=== PATIENT | male | born 1935 | race Caucasian/White ===

== ENCOUNTER 2020-02-02 17:16 | Inpatient (IN) | payer MEDICARE, MEDICAID ==
[~2020-02-02] VITALS: Ht 165.1 cm; Wt 77.4 kg
[2020-02-02] MEDS ORDERED: SODIUM CHLORIDE 0.9% 500 ML IV ONE (17:36)
[2020-02-02] MEDS ORDERED: ONDANSETRON HCL 4MG/2ML INJ IV ONE (17:45)
[2020-02-02 18:00] LABS: BASOPHILS % 0.6 % (0.0-2.0); EOSINOPHILS % 0.4 % (0.0-5.0); HEMATOCRIT. 34.2 % (42.0-52.0); HEMOGLOBIN. 11.3 g/dL (14.0-18.0); LYMPHOCYTES % 16.7 % (20.0-50.0); MEAN CORPUSCULAR HEMOGLOBIN 28.6 pg (28.0-32.0); MEAN CORPUSCULAR VOLUME 86.6 fL (80.0-94.0); MEAN PLATELET VOLUME 9.7 fl (7.4-10.4); MONOCYTES % 8.3 % (2.0-8.0); PLATELET 102 x1000/uL (130-400); RED BLOOD CELL COUNT 3.95 mill/uL (4.7-6.1); RED CELL DISTRIBUTION WIDTH 18.1 % (11.6-14.6)
[2020-02-02 18:07] LABS: CHLORIDE 101 mEq/L (98-107)
[2020-02-02 18:10] LABS: PROTHROMBIN TIME 10.3 sec (9.6-11.0)
[2020-02-02] MEDS ORDERED: DOPAMINE 400MG/250ML PREMIX 250 ML IV ONE (18:15)
[2020-02-02 18:16] LABS: CREATINE KINASE 40 IU/L (39-308)
[2020-02-02 18:19] LABS: CREATINE KINASE MB FRACTION < 1.0 ng/mL (0.5-3.6)
[2020-02-02] MEDS ORDERED: CALCIUM CHLORIDE 1GM/10ML SYR IV ONE (18:30)
[2020-02-02] MEDS ORDERED: DEXTROSE 50% WATER 50ML SYRINGE IV ONE (18:30)
[2020-02-02] MEDS ORDERED: SODIUM BICARBONATE 8.4% 1 MEQ/ML 50ML SYR IV ONE (18:30)
[2020-02-02] MEDS ORDERED: INSULIN REGULAR (HUMULIN R) 300UNITS/3ML IV ONE (18:30)
[2020-02-02] MEDS ORDERED: PROPOFOL 10MG/ML 100ML 100 ML IV ONE (18:45)
[2020-02-02 19:17] LABS: BG BASE EXCESS -3.8 mmol/L (-2.0-2.0); BG CARBOXYHEMOGLOBIN 0.3 % (0.5-1.5); BG DEOXYHEMOGLOBIN 0.7 % (0.0-5.0); BG FRACTION INSPIRED OXYGEN 100; BG HCO3 ACT 21.2 mmol/L (22.0-26.0); BG METHEMOGLOBIN 0.3 % (0.0-1.5); BG OXYGEN SATURATION 99.3 % (92.0-98.5); BG OXYHEMOGLOBIN 98.7 % (94.0-97.0); BG PCO2 38.3 mmHg (35.0-45.0); BG PH 7.362 (7.350-7.450); BG PO2 256.1 mmHg (75.0-100.0); BG SAMPLE SITE LEFT RADIAL; BG TIDAL VOLUME(mL) 500 mL; BG VENT MODE VENT - A/C; BG VENT RATE 16 set
[2020-02-02] MEDS ORDERED: PROPOFOL 10MG/ML 100ML 100 ML IV SCH (22:00)
[2020-02-03] VITALS (55 sets, daily range): BP systolic 113–189; BP diastolic 51–119
[2020-02-03] MEDS ORDERED: PROPOFOL 10MG/ML 100ML 100 ML IV PRN (00:45)
[2020-02-03] MEDS: DOPAMINE 400MG/250ML PREMIX 250 ML IV PRN ×5 (01:34→18:54)
[2020-02-03 08:59] LABS: BG BASE EXCESS -7.8 mmol/L (-2.0-2.0); BG DEOXYHEMOGLOBIN 10.2 % (0.0-5.0); BG FRACTION INSPIRED OXYGEN 50; BG HCO3 ACT 17.3 mmol/L (22.0-26.0); BG METHEMOGLOBIN 0.1 % (0.0-1.5); BG OXYGEN SATURATION 89.8 % (92.0-98.5); BG OXYHEMOGLOBIN 89.7 % (94.0-97.0); BG PH 7.325 (7.350-7.450); BG PO2 64.9 mmHg (75.0-100.0); BG SAMPLE SITE RIGHT RADIAL; BG TIDAL VOLUME(mL) 500 mL; BG TOTAL HEMOGLOBIN 12.5 g/dL (12.0-18.0); BG VENT MODE VENT - A/C; BG VENT RATE 16 set
[2020-02-03 10:20] LABS: CHLORIDE 93 mEq/L (98-107)
[2020-02-03 10:21] LABS: HEMATOCRIT. 35.8 % (42.0-52.0); HEMOGLOBIN. 11.9 g/dL (14.0-18.0); MEAN CORPUSCULAR HEMOGLOBIN 28.8 pg (28.0-32.0); MEAN CORPUSCULAR VOLUME 86.6 fL (80.0-94.0); RED BLOOD CELL COUNT 4.14 mill/uL (4.7-6.1); RED CELL DISTRIBUTION WIDTH 18.1 % (11.6-14.6)
[2020-02-03] MEDS: PROPOFOL 10MG/ML 100ML 100 ML IV PRN ×2 (11:45→18:54)
[2020-02-03] MEDS ORDERED: DEXTROSE 50% WATER 50ML SYRINGE IV PRN (11:45)
[2020-02-03] MEDS: BLOOD SUGAR DIAGNOSTIC STRIP TEST SCH ×2 (12:15→17:07)
[2020-02-03] MEDS: IPRATROPIUM/ALBUTEROL 0.5-3(2.5)MG/3ML NEB HHN SCH ×2 (12:21→20:30)
[2020-02-03] MEDS: INSULIN LISPRO 100 UNITS/ML SUBCUT SCH ×2 (12:32→18:13)
[2020-02-03 12:35] LABS: T4 FREE 1.2 ng/dL (0.76-1.46)
[2020-02-03] MEDS ORDERED: LIDOCAINE HCL 1% 20ML VIAL (Pyxis) INJ ONE (13:29)
[2020-02-03 13:54] LABS: PLATELET ESTIMATE SLIGHTLY DECREASED
[2020-02-03 13:55] LABS: PLATELET 123 x1000/uL (130-400)
[2020-02-03] MEDS: FENTANYL 1,000 MCG in SODIUM CHLORIDE 0.9% 100 ML IV PRN (16:37)
[2020-02-03] MEDS: PANTOPRAZOLE SODIUM 40 MG/VIAL IV SCH (18:19)
[2020-02-03] MEDS ORDERED: INSULIN LISPRO 100 UNITS/ML SUBCUT SCH (20:00)
[2020-02-03] MEDS ORDERED: NOREPINEPHRINE 4 MG in DEXT 5% WATER 246 ML IV PRN (20:30)
[2020-02-04] VITALS (71 sets, daily range): BP systolic 55–178; BP diastolic 35–74
[2020-02-04] MEDS: BLOOD SUGAR DIAGNOSTIC STRIP TEST SCH ×5 (00:04→23:53)
[2020-02-04] MEDS: DOPAMINE 400MG/250ML PREMIX 250 ML IV PRN (00:54)
[2020-02-04] MEDS: IPRATROPIUM/ALBUTEROL 0.5-3(2.5)MG/3ML NEB HHN SCH ×4 (02:04→20:03)
[2020-02-04] MEDS: INSULIN LISPRO 100 UNITS/ML SUBCUT SCH ×5 (05:01→23:53)
[2020-02-04] MEDS: PROPOFOL 10MG/ML 100ML 100 ML IV PRN (05:01)
[2020-02-04 05:57] LABS: BASOPHILS % 0.6 % (0.0-2.0); HEMATOCRIT. 35.6 % (42.0-52.0); HEMOGLOBIN. 11.8 g/dL (14.0-18.0); LYMPHOCYTES % 7.9 % (20.0-50.0); MEAN CORPUSCULAR HEMOGLOBIN 28.6 pg (28.0-32.0); MEAN CORPUSCULAR VOLUME 86.7 fL (80.0-94.0); MEAN PLATELET VOLUME 10.1 fl (7.4-10.4); MONOCYTES % 8.4 % (2.0-8.0); NEUTROPHILS % 82.1 % (40.0-76.0); PLATELET 90 x1000/uL (130-400); RED BLOOD CELL COUNT 4.11 mill/uL (4.7-6.1); RED CELL DISTRIBUTION WIDTH 18.1 % (11.6-14.6)
[2020-02-04] MEDS ORDERED: SODIUM BICARBONATE 8.4% 1 MEQ/ML 50ML SYR IV STA (06:26)
[2020-02-04] MEDS ORDERED: SODIUM POLYSTYRENE SULFONATE 15 G/60 ML BOT PO STA (06:26)
[2020-02-04] MEDS ORDERED: INSULIN REGULAR (HUMULIN R) 300UNITS/3ML IV STA (06:26)
[2020-02-04] MEDS ORDERED: DEXTROSE 50% WATER 50ML SYRINGE IV STA (06:26)
[2020-02-04] MEDS ORDERED: [UNRECOGNIZED DRUG - CODE] IV (06:41)
[2020-02-04] MEDS ORDERED: LOSA100T32 MT (06:41)
[2020-02-04] MEDS ORDERED: OMEP20CA14 MT (06:41)
[2020-02-04] MEDS ORDERED: LINA5TAB PO (06:41)
[2020-02-04] MEDS: PANTOPRAZOLE SODIUM 40 MG/VIAL IV SCH ×2 (08:14→18:38)
[2020-02-04 08:15] LABS: BG CARBOXYHEMOGLOBIN 0.3 % (0.5-1.5); BG DEOXYHEMOGLOBIN 2.9 % (0.0-5.0); BG FRACTION INSPIRED OXYGEN 50; BG HCO3 ACT 24.2 mmol/L (22.0-26.0); BG METHEMOGLOBIN 0.1 % (0.0-1.5); BG OXYGEN SATURATION 97.1 % (92.0-98.5); BG OXYHEMOGLOBIN 96.7 % (94.0-97.0); BG PCO2 37.7 mmHg (35.0-45.0); BG PH 7.426 (7.350-7.450); BG PO2 95.6 mmHg (75.0-100.0); BG SAMPLE SITE RIGHT RADIAL; BG TIDAL VOLUME(mL) 500 mL; BG TOTAL HEMOGLOBIN 11.3 g/dL (12.0-18.0); BG VENT MODE VENT - A/C; BG VENT RATE 16 set
[2020-02-04] MEDS ORDERED: PANTOPRAZOLE SODIUM 40 MG/VIAL IV SCH (09:00)
[2020-02-04] MEDS ORDERED: PROPOFOL 10MG/ML 100ML 100 ML IV PRN (11:30)
[2020-02-04] MEDS: CEFEPIME 1,000 MG in DEXTROSE 5% WATER 50 ML IV SCH (14:17)
[2020-02-05] VITALS (45 sets, daily range): BP systolic 68–148; BP diastolic 30–90
[2020-02-05] MEDS: ACETAMINOPHEN 650MG/20.3ML UDC PO PRN (00:36)
[2020-02-05] MEDS: IPRATROPIUM/ALBUTEROL 0.5-3(2.5)MG/3ML NEB HHN SCH ×4 (02:02→20:39)
[2020-02-05] MEDS: INSULIN LISPRO 100 UNITS/ML SUBCUT SCH ×3 (05:54→17:57)
[2020-02-05] MEDS: BLOOD SUGAR DIAGNOSTIC STRIP TEST SCH ×3 (05:55→17:56)
[2020-02-05 06:10] LABS: BASOPHILS % 0.3 % (0.0-2.0); EOSINOPHILS % 0.1 % (0.0-5.0); HEMATOCRIT. 30.8 % (42.0-52.0); HEMOGLOBIN. 10.3 g/dL (14.0-18.0); LYMPHOCYTES % 7.2 % (20.0-50.0); MEAN CORPUSCULAR HEMOGLOBIN 28.9 pg (28.0-32.0); MEAN CORPUSCULAR VOLUME 86.5 fL (80.0-94.0); MEAN PLATELET VOLUME 10.8 fl (7.4-10.4); MONOCYTES % 6.9 % (2.0-8.0); NEUTROPHILS % 85.5 % (40.0-76.0); PLATELET 92 x1000/uL (130-400); RED BLOOD CELL COUNT 3.56 mill/uL (4.7-6.1); RED CELL DISTRIBUTION WIDTH 18.3 % (11.6-14.6)
[2020-02-05] MEDS: FENTANYL 1,000 MCG in SODIUM CHLORIDE 0.9% 100 ML IV PRN ×2 (06:21→17:58)
[2020-02-05 09:12] LABS: BG BASE EXCESS 1.8 mmol/L (-2.0-2.0); BG CARBOXYHEMOGLOBIN 0.3 % (0.5-1.5); BG DEOXYHEMOGLOBIN 2.9 % (0.0-5.0); BG FRACTION INSPIRED OXYGEN 50; BG HCO3 ACT 27.2 mmol/L (22.0-26.0); BG METHEMOGLOBIN 0.3 % (0.0-1.5); BG OXYGEN SATURATION 97.1 % (92.0-98.5); BG OXYHEMOGLOBIN 96.5 % (94.0-97.0); BG PCO2 45.7 mmHg (35.0-45.0); BG PH 7.392 (7.350-7.450); BG PO2 98.7 mmHg (75.0-100.0); BG SAMPLE SITE RIGHT RADIAL; BG TIDAL VOLUME(mL) 500 mL; BG VENT MODE VENT - A/C; BG VENT RATE 16 set
[2020-02-05] MEDS: PANTOPRAZOLE SODIUM 40 MG/VIAL IV SCH ×2 (09:27→17:00)
[2020-02-05] MEDS: CEFEPIME 1,000 MG in DEXTROSE 5% WATER 50 ML IV SCH (12:52)
[2020-02-05 15:04] LABS: BG BASE EXCESS 2.8 mmol/L (-2.0-2.0); BG CARBOXYHEMOGLOBIN 0.5 % (0.5-1.5); BG DEOXYHEMOGLOBIN 9.2 % (0.0-5.0); BG FRACTION INSPIRED OXYGEN 40; BG HCO3 ACT 29.5 mmol/L (22.0-26.0); BG METHEMOGLOBIN 0.3 % (0.0-1.5); BG OXYGEN SATURATION 90.7 % (92.0-98.5); BG PCO2 55.4 mmHg (35.0-45.0); BG PH 7.344 (7.350-7.450); BG PO2 66.6 mmHg (75.0-100.0); BG PRESSURE SUPPORT 8; BG SAMPLE SITE RIGHT BRACHIAL; BG TOTAL HEMOGLOBIN 11.5 g/dL (12.0-18.0); BG VENT MODE VENT - CPAP
[2020-02-06] VITALS (74 sets, daily range): BP systolic 89–187; BP diastolic 34–113
[2020-02-06] MEDS: BLOOD SUGAR DIAGNOSTIC STRIP TEST SCH ×5 (00:19→23:45)
[2020-02-06] MEDS: IPRATROPIUM/ALBUTEROL 0.5-3(2.5)MG/3ML NEB HHN SCH ×4 (01:46→20:52)
[2020-02-06] MEDS: INSULIN LISPRO 100 UNITS/ML SUBCUT SCH ×4 (05:41→17:55)
[2020-02-06 06:44] LABS: HEMOGLOBIN. 9.7 g/dL (14.0-18.0); MEAN CORPUSCULAR HEMOGLOBIN 28.8 pg (28.0-32.0); MEAN CORPUSCULAR VOLUME 86.2 fL (80.0-94.0); MEAN PLATELET VOLUME 10.6 fl (7.4-10.4); PLATELET 85 x1000/uL (130-400); RED BLOOD CELL COUNT 3.37 mill/uL (4.7-6.1); RED CELL DISTRIBUTION WIDTH 18.5 % (11.6-14.6)
[2020-02-06 08:36] LABS: PLATELET ESTIMATE DECREASED
[2020-02-06] MEDS: PANTOPRAZOLE SODIUM 40 MG/VIAL IV SCH ×2 (09:06→18:02)
[2020-02-06] MEDS ORDERED: LOSARTAN POTASSIUM 50 MG TABLET PO SCH (11:15)
[2020-02-06] MEDS: CEFEPIME 1,000 MG in DEXTROSE 5% WATER 50 ML IV SCH ×2 (12:00→18:03)
[2020-02-06] MEDS: METOCLOPRAMIDE HCL 10MG/2ML VIAL IV SCH (18:03)
[2020-02-07] VITALS (66 sets, daily range): BP systolic 80–194; BP diastolic 40–95
[2020-02-07] MEDS: METOCLOPRAMIDE HCL 10MG/2ML VIAL IV SCH ×4 (00:10→17:25)
[2020-02-07] MEDS: HYDRALAZINE 20MG/ML VIAL IV PRN (00:33)
[2020-02-07] MEDS: IPRATROPIUM/ALBUTEROL 0.5-3(2.5)MG/3ML NEB HHN SCH ×3 (03:09→14:33)
[2020-02-07 06:09] LABS: HEMATOCRIT. 33.6 % (42.0-52.0); HEMOGLOBIN. 11.1 g/dL (14.0-18.0); MEAN CORPUSCULAR HEMOGLOBIN 28.9 pg (28.0-32.0); MEAN CORPUSCULAR VOLUME 87.1 fL (80.0-94.0); MEAN PLATELET VOLUME 10.2 fl (7.4-10.4); PLATELET 93 x1000/uL (130-400); RED BLOOD CELL COUNT 3.86 mill/uL (4.7-6.1); RED CELL DISTRIBUTION WIDTH 18.5 % (11.6-14.6)
[2020-02-07 07:47] LABS: PLATELET ESTIMATE DECREASED
[2020-02-07] MEDS: PANTOPRAZOLE SODIUM 40 MG/VIAL IV SCH ×2 (08:28→17:24)
[2020-02-07] MEDS: CEFEPIME 1,000 MG in DEXTROSE 5% WATER 50 ML IV SCH (11:04)
[2020-02-07] MEDS: PHENYLEPHRINE 10 MG in DEXT 5% WATER 249 ML IV PRN (11:05)
[2020-02-07] MEDS: BLOOD SUGAR DIAGNOSTIC STRIP TEST SCH ×2 (11:45→17:45)
[2020-02-07] MEDS: INSULIN LISPRO 100 UNITS/ML SUBCUT SCH ×3 (12:00→18:00)
[2020-02-07 16:37] LABS: BG BASE EXCESS 0.1 mmol/L (-2.0-2.0); BG CARBOXYHEMOGLOBIN 0.5 % (0.5-1.5); BG FRACTION INSPIRED OXYGEN 40; BG HCO3 ACT 24.6 mmol/L (22.0-26.0); BG METHEMOGLOBIN 0.4 % (0.0-1.5); BG OXYHEMOGLOBIN 98.1 % (94.0-97.0); BG PCO2 39.5 mmHg (35.0-45.0); BG PH 7.412 (7.350-7.450); BG PO2 150.4 mmHg (75.0-100.0); BG SAMPLE SITE LEFT BRACHIAL; BG TIDAL VOLUME(mL) 500 mL; BG TOTAL HEMOGLOBIN 13.1 g/dL (12.0-18.0); BG VENT MODE VENT - A/C; BG VENT RATE 16 set
[2020-02-08] VITALS (62 sets, daily range): BP systolic 95–183; BP diastolic 50–78
[2020-02-08] MEDS: BLOOD SUGAR DIAGNOSTIC STRIP TEST SCH ×5 (00:29→23:57)
[2020-02-08] MEDS: METOCLOPRAMIDE HCL 10MG/2ML VIAL IV SCH ×4 (01:14→17:38)
[2020-02-08] MEDS: PHENYLEPHRINE 10 MG in DEXT 5% WATER 249 ML IV PRN (05:02)
[2020-02-08 05:39] LABS: HEMATOCRIT. 30.9 % (42.0-52.0); HEMOGLOBIN. 10.4 g/dL (14.0-18.0); MEAN CORPUSCULAR HEMOGLOBIN 28.9 pg (28.0-32.0); MEAN CORPUSCULAR VOLUME 85.9 fL (80.0-94.0); MEAN PLATELET VOLUME 10.2 fl (7.4-10.4); PLATELET 89 x1000/uL (130-400); RED CELL DISTRIBUTION WIDTH 18.6 % (11.6-14.6)
[2020-02-08] MEDS: INSULIN LISPRO 100 UNITS/ML SUBCUT SCH ×4 (06:00→18:00)
[2020-02-08 08:54] LABS: BG BASE EXCESS -2.1 mmol/L (-2.0-2.0); BG CARBOXYHEMOGLOBIN 0.3 % (0.5-1.5); BG DEOXYHEMOGLOBIN 1.9 % (0.0-5.0); BG FRACTION INSPIRED OXYGEN 40; BG HCO3 ACT 22.9 mmol/L (22.0-26.0); BG METHEMOGLOBIN 0.4 % (0.0-1.5); BG OXYGEN SATURATION 98.1 % (92.0-98.5); BG OXYHEMOGLOBIN 97.4 % (94.0-97.0); BG PCO2 39.8 mmHg (35.0-45.0); BG PH 7.377 (7.350-7.450); BG PO2 123.4 mmHg (75.0-100.0); BG SAMPLE SITE LEFT RADIAL; BG TIDAL VOLUME(mL) 500 mL; BG TOTAL HEMOGLOBIN 11.1 g/dL (12.0-18.0); BG VENT MODE VENT - A/C; BG VENT RATE 16 set
[2020-02-08] MEDS: PANTOPRAZOLE SODIUM 40 MG/VIAL IV SCH ×2 (09:04→17:39)
[2020-02-08 10:26] LABS: PLATELET ESTIMATE SLIGHTLY DECREASED
[2020-02-08] MEDS: CEFEPIME 1,000 MG in DEXTROSE 5% WATER 50 ML IV SCH (12:27)
[2020-02-08 16:32] LABS: BG BASE EXCESS -0.3 mmol/L (-2.0-2.0); BG CARBOXYHEMOGLOBIN 0.1 % (0.5-1.5); BG DEOXYHEMOGLOBIN 1.6 % (0.0-5.0); BG FRACTION INSPIRED OXYGEN 40; BG HCO3 ACT 24.9 mmol/L (22.0-26.0); BG METHEMOGLOBIN 0.4 % (0.0-1.5); BG OXYGEN SATURATION 98.4 % (92.0-98.5); BG OXYHEMOGLOBIN 97.9 % (94.0-97.0); BG PCO2 42.9 mmHg (35.0-45.0); BG PH 7.382 (7.350-7.450); BG PO2 142.1 mmHg (75.0-100.0); BG PRESSURE SUPPORT 12; BG SAMPLE SITE LEFT RADIAL; BG TIDAL VOLUME(mL) 500 mL; BG TOTAL HEMOGLOBIN 13.2 g/dL (12.0-18.0); BG VENT MODE VENT - SIMV; BG VENT RATE 10 set
[2020-02-09] VITALS (48 sets, daily range): BP systolic 90–182; BP diastolic 43–77
[2020-02-09] MEDS: METOCLOPRAMIDE HCL 10MG/2ML VIAL IV SCH ×4 (00:01→17:08)
[2020-02-09] MEDS: INSULIN LISPRO 100 UNITS/ML SUBCUT SCH ×4 (05:22→17:17)
[2020-02-09] MEDS: BLOOD SUGAR DIAGNOSTIC STRIP TEST SCH ×4 (05:22→23:45)
[2020-02-09 06:19] LABS: HEMATOCRIT. 31.4 % (42.0-52.0); HEMOGLOBIN. 10.5 g/dL (14.0-18.0); MEAN CORPUSCULAR VOLUME 86.8 fL (80.0-94.0); MEAN PLATELET VOLUME 9.8 fl (7.4-10.4); PLATELET 86 x1000/uL (130-400); RED BLOOD CELL COUNT 3.62 mill/uL (4.7-6.1); RED CELL DISTRIBUTION WIDTH 18.4 % (11.6-14.6)
[2020-02-09] MEDS: PANTOPRAZOLE SODIUM 40 MG/VIAL IV SCH ×2 (09:32→17:08)
[2020-02-09] MEDS: HYDRALAZINE 20MG/ML VIAL IV PRN (09:38)
[2020-02-09 10:53] LABS: BG BASE EXCESS -8.2 mmol/L (-2.0-2.0); BG CARBOXYHEMOGLOBIN 0.8 % (0.5-1.5); BG DEOXYHEMOGLOBIN 1.8 % (0.0-5.0); BG FRACTION INSPIRED OXYGEN 40; BG HCO3 ACT 17.9 mmol/L (22.0-26.0); BG METHEMOGLOBIN 0.3 % (0.0-1.5); BG OXYGEN SATURATION 98.2 % (92.0-98.5); BG OXYHEMOGLOBIN 97.1 % (94.0-97.0); BG PCO2 38.9 mmHg (35.0-45.0); BG PO2 135.4 mmHg (75.0-100.0); BG PRESSURE SUPPORT 12; BG SAMPLE SITE LEFT BRACHIAL; BG TIDAL VOLUME(mL) 500 mL; BG TOTAL HEMOGLOBIN 14.9 g/dL (12.0-18.0); BG VENT MODE VENT - SIMV; BG VENT RATE 10 set
[2020-02-09 11:41] LABS: NUCLEATED RED BLOOD CELLS 1 /100 WBC
[2020-02-09 11:49] LABS: PLATELET ESTIMATE SLIGHTLY DECREASED
[2020-02-09 12:22] LABS: BG BASE EXCESS -7.6 mmol/L (-2.0-2.0); BG CARBOXYHEMOGLOBIN 0.6 % (0.5-1.5); BG DEOXYHEMOGLOBIN 1.4 % (0.0-5.0); BG FRACTION INSPIRED OXYGEN 40; BG HCO3 ACT 18.3 mmol/L (22.0-26.0); BG METHEMOGLOBIN 0.4 % (0.0-1.5); BG OXYGEN SATURATION 98.6 % (92.0-98.5); BG OXYHEMOGLOBIN 97.6 % (94.0-97.0); BG PCO2 38.7 mmHg (35.0-45.0); BG PH 7.293 (7.350-7.450); BG PO2 152.4 mmHg (75.0-100.0); BG PRESSURE SUPPORT 8; BG SAMPLE SITE LEFT BRACHIAL; BG TOTAL HEMOGLOBIN 13.6 g/dL (12.0-18.0); BG VENT MODE VENT - CPAP
[2020-02-09] MEDS: IPRATROPIUM/ALBUTEROL 0.5-3(2.5)MG/3ML NEB HHN PRN (20:45)
[2020-02-10] VITALS (49 sets, daily range): BP systolic 99–168; BP diastolic 46–84
[2020-02-10] MEDS: METOCLOPRAMIDE HCL 10MG/2ML VIAL IV SCH ×4 (00:54→17:32)
[2020-02-10] MEDS: INSULIN LISPRO 100 UNITS/ML SUBCUT SCH ×4 (00:55→18:00)
[2020-02-10] MEDS: IPRATROPIUM/ALBUTEROL 0.5-3(2.5)MG/3ML NEB HHN PRN (02:23)
[2020-02-10] MEDS: BLOOD SUGAR DIAGNOSTIC STRIP TEST SCH ×4 (05:45→23:45)
[2020-02-10 06:09] LABS: HEMATOCRIT. 39.1 % (42.0-52.0); HEMOGLOBIN. 12.5 g/dL (14.0-18.0); MEAN CORPUSCULAR HEMOGLOBIN 28.8 pg (28.0-32.0); MEAN CORPUSCULAR VOLUME 90.1 fL (80.0-94.0); RED BLOOD CELL COUNT 4.34 mill/uL (4.7-6.1); RED CELL DISTRIBUTION WIDTH 18.9 % (11.6-14.6)
[2020-02-10] MEDS: PANTOPRAZOLE SODIUM 40 MG/VIAL IV SCH ×2 (09:11→17:32)
[2020-02-10 12:34] LABS: HEMATOCRIT. 37.5 % (42.0-52.0); HEMOGLOBIN. 12.1 g/dL (14.0-18.0); MEAN CORPUSCULAR HEMOGLOBIN 28.6 pg (28.0-32.0); MEAN CORPUSCULAR VOLUME 88.9 fL (80.0-94.0); MEAN PLATELET VOLUME 9.8 fl (7.4-10.4); PLATELET 126 x1000/uL (130-400); RED BLOOD CELL COUNT 4.22 mill/uL (4.7-6.1); RED CELL DISTRIBUTION WIDTH 18.5 % (11.6-14.6)
[2020-02-10 14:44] LABS: PLATELET 105 x1000/uL (130-400)
[2020-02-10 14:50] LABS: ATYPICAL LYMPHOCYTES 1; PLATELET ESTIMATE SLIGHTLY DECREASED
[2020-02-10 17:48] LABS: PLATELET ESTIMATE DECREASED
[2020-02-10] MEDS ORDERED: TRAMADOL 50MG TABLET PO PRN (18:00)
[2020-02-10] MEDS: ACETAMINOPHEN 650MG/20.3ML UDC PO PRN (20:38)
[2020-02-11] VITALS (21 sets, daily range): BP systolic 44–159; BP diastolic 18–77
[2020-02-11] MEDS: METOCLOPRAMIDE HCL 10MG/2ML VIAL IV SCH ×2 (00:30→06:22)
[2020-02-11] MEDS: INSULIN LISPRO 100 UNITS/ML SUBCUT SCH ×2 (00:31→06:32)
[2020-02-11] MEDS: BLOOD SUGAR DIAGNOSTIC STRIP TEST SCH (06:26)
[2020-02-11 06:38] LABS: HEMATOCRIT. 36.9 % (42.0-52.0); HEMOGLOBIN. 11.9 g/dL (14.0-18.0); MEAN CORPUSCULAR HEMOGLOBIN 28.3 pg (28.0-32.0); MEAN CORPUSCULAR VOLUME 88.2 fL (80.0-94.0); MEAN PLATELET VOLUME 10.1 fl (7.4-10.4); PLATELET 164 x1000/uL (130-400); RED BLOOD CELL COUNT 4.18 mill/uL (4.7-6.1); RED CELL DISTRIBUTION WIDTH 18.3 % (11.6-14.6)
[2020-02-11] MEDS ORDERED: PHENYLEPHRINE 100 MG in DEXT 5% WATER 240 ML IV PRN (10:45)
[2020-02-11 11:00] LABS: BG BASE EXCESS -8.8 mmol/L (-2.0-2.0); BG CARBOXYHEMOGLOBIN 0.7 % (0.5-1.5); BG DEOXYHEMOGLOBIN 7.6 % (0.0-5.0); BG FRACTION INSPIRED OXYGEN 100; BG METHEMOGLOBIN 0.2 % (0.0-1.5); BG OXYGEN SATURATION 92.3 % (92.0-98.5); BG OXYHEMOGLOBIN 91.5 % (94.0-97.0); BG PCO2 31.7 mmHg (35.0-45.0); BG PH 7.321 (7.350-7.450); BG PO2 75.2 mmHg (75.0-100.0); BG SAMPLE SITE LEFT FEMORAL; BG TIDAL VOLUME(mL) 500 mL; BG TOTAL HEMOGLOBIN 13.9 g/dL (12.0-18.0); BG VENT MODE VENT - A/C; BG VENT RATE 22 set
[2020-02-11] MEDS ORDERED: IPRATROPIUM BROMIDE (0.02%) 0.5MG/2.5ML NEB HHN SCH (11:00)
[2020-02-11] MEDS ORDERED: EPINEPHRINE 10 MG in SODIUM CHLORIDE 0.9% 240 ML IV PRN (11:15)
[2020-02-11] MEDS ORDERED: ATROPINE SULFATE 1MG/10ML SYR IV NR (11:30)
[2020-02-11] MEDS ORDERED: FENTANYL CITRATE/PF 1,000 MCG in SODIUM CHLORIDE 0.9% 80 ML IV PRN (12:00)
[2020-02-11] MEDS ORDERED: MIDAZOLAM HCL 100 MG in DEXT 5% WATER 80 ML IV PRN (12:00)
[2020-02-11 13:54] LABS: PLATELET ESTIMATE NORMAL
== END 2020-02-11 11:44 | disposition expired | DRG 207 ==
LOC: ER 17:16 → EDBEDREQSVC 18:07 → EDBEDREQTM 18:07 → EDBEDREQ 18:07 → EDBEDREQSVC 18:19 → MICUSO 18:42 → EDBD 18:42 → EDBEDREQ 18:49 → EDBEDREQTM 18:49 → CVICU 02-03 08:09 → 3WST 02-11 00:01 → CVICU 02-11 11:24
PROVIDERS: ADMIT Internal Medicine; ATTEND Internal Medicine
PROC: 5A1955Z Respiratory Ventilation, Greater than 96 Consecutive Hours (ICD-10-PCS; principal; 2020-02-02)
PROC: 06HY33Z Insertion of Infusion Device into Lower Vein, Percutaneous Approach (ICD-10-PCS; 2020-02-02)
PROC: 5A12012 Performance of Cardiac Output, Single, Manual (ICD-10-PCS; 2020-02-02)
PROC: 0BH17EZ Insertion of Endotracheal Airway into Trachea, Via Natural or Artificial Opening (ICD-10-PCS; 2020-02-02)
PROC: 02HV33Z Insertion of Infusion Device into Superior Vena Cava, Percutaneous Approach (ICD-10-PCS; 2020-02-03)
PROC: B548ZZA Ultrasonography of Superior Vena Cava, Guidance (ICD-10-PCS; 2020-02-03)
PROC: 5A1D70Z Performance of Urinary Filtration, Intermittent, Less than 6 Hours Per Day (ICD-10-PCS; 2020-02-03)
PROC: 5A1D70Z Performance of Urinary Filtration, Intermittent, Less than 6 Hours Per Day (ICD-10-PCS; 2020-02-04)
PROC: 5A1D70Z Performance of Urinary Filtration, Intermittent, Less than 6 Hours Per Day (ICD-10-PCS; 2020-02-06)
PROC: 5A1D70Z Performance of Urinary Filtration, Intermittent, Less than 6 Hours Per Day (ICD-10-PCS; 2020-02-09)
PROC: 5A1D70Z Performance of Urinary Filtration, Intermittent, Less than 6 Hours Per Day (ICD-10-PCS; 2020-02-11)
DX: J96.00 Acute respiratory failure, unspecified whether with hypoxia or hypercapnia (principal); I50.23 Acute on chronic systolic (congestive) heart failure; N18.6 End stage renal disease; J18.9 Pneumonia, unspecified organism; G93.41 Metabolic encephalopathy; I63.9 Cerebral infarction, unspecified; I71.00 Dissection of unspecified site of aorta; I13.2 Hypertensive heart and chronic kidney disease with heart failure and with stage 5 chronic kidney disease, or end stage renal disease; E87.1 Hypo-osmolality and hyponatremia; E87.2 Acidosis; I48.92 Unspecified atrial flutter; I31.3 Pericardial effusion (noninflammatory); I82.409 Acute embolism and thrombosis of unspecified deep veins of unspecified lower extremity; I42.8 Other cardiomyopathies; I46.2 Cardiac arrest due to underlying cardiac condition; I44.0 Atrioventricular block, first degree; E87.5 Hyperkalemia; D63.1 Anemia in chronic kidney disease; E11.22 Type 2 diabetes mellitus with diabetic chronic kidney disease; I49.5 Sick sinus syndrome; D69.6 Thrombocytopenia, unspecified; I48.0 Paroxysmal atrial fibrillation; I25.10 Atherosclerotic heart disease of native coronary artery without angina pectoris; R45.84 Anhedonia; K75.9 Inflammatory liver disease, unspecified; E86.1 Hypovolemia; T50.3X5A Adverse effect of electrolytic, caloric and water-balance agents, initial encounter; E11.51 Type 2 diabetes mellitus with diabetic peripheral angiopathy without gangrene; R54 Age-related physical debility; Z66 Do not resuscitate; Z99.2 Dependence on renal dialysis; Z78.1 Physical restraint status; Z95.828 Presence of other vascular implants and grafts; Y92.89 Other specified places as the place of occurrence of the external cause; Z79.899 Other long term (current) drug therapy
CPT/HCPCS: 31500; 36415; 36600; 70551; 71045; 74018; 76937; 80048; 80053; 80061; 82140; 82270; 82375; 82550; 82553; 82805; 82962; 83036; 83735; 83880; 84100; 84132; 84145; 84439; 84443; 84478; 84484; 85025; 87070; 87077; 87186; 92950; 93005; 93306; 93970; 94002; 94003; 94640; 96365; 97162; 97166; 99291; C1725; C9113; J0360; J0692; J1265; J1815; J2370; J2405; J2704; J2765; J3010; J3490; J7040; J7050; J7060